=== PATIENT | male | born 1995 | race Caucasian/White ===

== ENCOUNTER 2022-05-16 22:02 | Emergency (ER) | payer OTHER ==
[~2022-05-16] VITALS: Ht 188 cm; Wt 120.0 kg
[~2022-05-16 22:02] MED LIST: EFFEXOR XR150 MG PO; REMERON15 M1 PO
[2022-05-17] MEDS ORDERED: ONDANSETRON ODT8 MG PO (00:18)
[2022-05-17] MEDS ORDERED: BENZONATATE100 MG PO (00:18)
[2022-05-17] MEDS ORDERED: CYCLOBENZAPRINE10 MG PO (00:18)
[2022-05-17] MEDS ORDERED: VENTOLIN HFA18 GM INH (00:19)
== END 2022-05-17 01:09 | disposition home or self-care (01) ==
LOC: ED 22:02
DX: J10.1 Influenza due to other identified influenza virus with other respiratory manifestations (principal); J45.909 Unspecified asthma, uncomplicated; F17.200 Nicotine dependence, unspecified, uncomplicated; Z20.822 Contact with and (suspected) exposure to COVID-19
CPT/HCPCS: 71045; 87502; 99284-25; U0003